=== PATIENT | female | born 2005 | race Caucasian/White ===

== ENCOUNTER 2024-01-15 08:20 | Outpatient (CLI) | payer BC, SELFPAY ==
--- NOTE | ~2024-01-15 | US_ITS ---
US transvaginal Ordering provider: Natalie Murphy, BHARATHI History: . Amenorrhea . Comparison: None. Technique: Transabdominal and endovaginal ultrasound of the pelvis (Doppler ultrasound interrogation techniques used as needed for this exam.) FINDINGS: CERVIX: Normal. UTERUS: Measures 5.9x 2.7x 3.2 cm in length which is within normal limits and is anteverted. No myom etrial masses. ENDOMETRIUM: Normal in thickness measuring 2.9 mm. No endometrial masses, cysts or fluid. CUL DE SAC: No free fluid. RIGHT OVARY: Normal in size measuring 3.1x 2.2x 2.8 cm. Normal echotexture. Doppler vascular flow pre sent. LEFT OVARY: Normal in size measuring 2x 2.6x 2 cm. Normal echotexture. Doppler vascular flow present. ADNEXA: Normal. No mass. IMPRESSION: normal pelvic ultrasound. Reviewed, dictated and finalized at location A. IMPRESSION: normal pelvic ultrasound.
== END 2024-01-15 08:21 ==
LOC: MICIMG 08:23
PROVIDERS: PCP Nurse Practitioner Women's Health; Visit Provider Nurse Practitioner Women's Health
DX: N91.2 Amenorrhea, unspecified (principal)
CPT/HCPCS: 76830